=== PATIENT | female | born 1980 | race Caucasian/White ===

== ENCOUNTER 2016-09-10 13:06 | Emergency (ER) | payer OTHER ==
[~2016-09-10 13:06] MED LIST: AMOXICILLIN500 M1 PO; BACTRIM DS TABL1 TA2 PO; BACTRIM DS TABL1 TAB PO; CIPRO PO; CLEOCIN HCL300 M1 PO; DAKIN'S MODIF1000 ML; DAKIN'S MODIF1000 ML TOP; DICLOFENAC PO; DOXYCYCLINE HY100 M3 PO; DOXYCYCLINE150 MG PO; FLAGYL PO; IBUPROFEN PO; IBUPROFEN600 MG PO; LORTAB 10-5001 EACH PO; LORTAB 5/500 TA1 TA1 PO; LORTAB 7.5-3251 EACH PO; METHADONE PO; MOTRIN400 M1 PO; MOTRIN600 MG PO; MULTIVITAMIN1 UDCAP PO; NAPROSYN375 MG PO; NAPROSYN500 MG PO; NICOTINE TRANSD21 MG EXT; NO MEDICATIONS; PERCOCET 5-3251 TAB PO; PERCOCET 5/321 UDTAB PO; PERCOCET10 PO; PRENATAL MULITV1 TAB PO; PYRIDIUM PO; TETRACYCLINE PO; TRAZODONE PO; ULTRAM PO; VICODIN 5/1 TAB 5/50 PO; VICODIN 5/500 T1 TAB PO; VISTARIL50 MG PO; VOLTAREN75 MG PO
== END 2016-09-10 15:11 | disposition home or self-care (01) ==
LOC: CED 13:06
DX: T40.1X1A Poisoning by heroin, accidental (unintentional), initial encounter (principal); F17.210 Nicotine dependence, cigarettes, uncomplicated; Z90.49 Acquired absence of other specified parts of digestive tract; Z79.899 Other long term (current) drug therapy
CPT/HCPCS: 96361; 96374; 99284; J2405

== ENCOUNTER 2016-10-22 19:32 | Emergency (ER) | payer OTHER | END 2016-10-22 20:36 | disposition home or self-care (01) | LOC: CFTX 19:32 | DX: L02.414 Cutaneous abscess of left upper limb (principal); F17.210 Nicotine dependence, cigarettes, uncomplicated; Z90.49 Acquired absence of other specified parts of digestive tract | CPT/HCPCS: 10060; 87070; 87077; 87186; 87205; 90471; 90715; 99283 ==

== ENCOUNTER 2016-10-25 16:59 | Emergency (ER) | payer OTHER | END 2016-10-25 17:13 | disposition home or self-care (01) | LOC: CFTX 16:59 | DX: L03.312 Cellulitis of back [any part except buttock and flank] (principal); F17.210 Nicotine dependence, cigarettes, uncomplicated | CPT/HCPCS: 99281 ==

== ENCOUNTER 2016-11-16 22:48 | Emergency (ER) | payer OTHER ==
--- NOTE | ~2016-11-16 | CR100 ---
[facility] A Service of [facility] & [facility] RADIOLOGY TEXT RESULTS PATIENT: AYUSH KOVACS LOCATION: [facility] : 82 UNIT #: [id number] AGE: [address]: Laura Davis MD SEX: F ORDER DR: [id number] [facility] [address] [place], [place] [address] [id number] E MR#: [id number] Acc #: [id number] NAME: AYUSH KOVACS : 1980 SEX: F STUDY DATE/TIME: 11/17/2016 0:27 UNIT: [facility] ROOM: STUDY DESCRIPTION: CR Facial Bones < 3 Views Attending Physician: Laura Davis M.D. Ordering Physician: Laura Davis M.D. Primary Care Physician: No Primary Care Physician MEDICAL IMAGING REPORT This report is preliminary unless electronic signature is present EXAM Facial bone series INDICATIONS Trauma. Facial pain secondary to a dog bite. FINDINGS 2 views of the facial bones without comparison. There is no acute fracture. No foreign body. Visualized paranasal sinuses are clear. IMPRESSION No acute traumatic findings. Dictated by... Parish Grajeda M.D. THIS IS AN ELECTRONICALLY VERIFIED REPORT Parish Grajeda M.D. at 11/17/2016 2:46 AM MANI/jack TD: 11/17/2016 02:44 JOB #: [id number] MEDICAL IMAGING REPORT Page 1 of 1 COPY
== END 2016-11-17 02:42 | disposition home or self-care (01) ==
LOC: CED 22:48
DX: S01.85XA Open bite of other part of head, initial encounter (principal); W54.0XXA Bitten by dog, initial encounter
CPT/HCPCS: 12011; 70140; 99283